=== PATIENT | male | born 1945 | race Caucasian/White ===

== ENCOUNTER → 2016-10-26 | Outpatient (CLI) | payer MEDICARE, OTHER ==
[2015-04-22 10:59] VITALS: BP 136/66
[~2016-10-26] MED LIST: ALPR0.25 PO; BACL10TA PO; ESOM20CA PO; EZET10TA18 PO; LISI10TA2 PO; OMEG500C3 PO; PSYL0.5215 PO; REGADENOSON 0.4 MG/5 ML DISP.SYRIN. IV ONE; TAMS0.4C97 PO; TRAM50TA PO
[2016-10-26 09:57] LABS: BASO % 0 % (0-3); EOS % 1 % (0-3); HEMATOCRIT 45.2 % (39.0-53.0); HEMOGLOBIN 15.8 g/dL (13.0-17.5); LYMPH # 1.2 x10^3/uL (1.0-4.8); LYMPH % 17 % (24-48); MEAN CORPUSCULAR HEMOGLOBIN 31 pg (25-35); MEAN CORPUSCULAR HGB CONC 35 g/dL (31-37); MEAN CORPUSCULAR VOLUME 89 fL (79-100); MONO % 7 % (0-9); NEUT % 74 % (31-73); PLATELET COUNT 232 x10^3/uL (140-400); RED BLOOD COUNT 5.06 x10^6/uL (4.30-5.70); RED CELL DISTRIBUTION WIDTH 13.9 % (11.5-14.5); WHITE BLOOD COUNT 7.1 x10^3/uL (4.0-11.0)
--- NOTE | 2016-10-26 13:18 | RAD ---
APPROVED REPORT Test Type: Pharmacological Stress Nurse/Tech: Ana White R.N. Test Indications: Chest pain, dypsnea Cardiac History: HTN Medications: SEE EMR Medical History: SEE EMR Resting ECG: SR Resting Heart Rate: 60 bpm Resting Blood Pressure: 137/67mmHg Pretest Chest Pain: None Nurse/Tech Notes S1S2, lungs CTA, denied chest pain, SOA or dizziness. Consent: The procedure was explained to the patient in lay terms. Informed consent was witnessed. Yamil eout was entered into [employer]. History and Stress Test performed by Ana White R.N. Pharm. Details Pharmacologic stress testing was performed using 0.4mg per 5ml of regadenoson given intravenously ove r 7-10 seconds. Stress Symptoms SOA, nausea. POST EXERCISE Reason for Termination: Infusion complete Max HR: 102 bpm Max Blood Pressure: 142/61mmHg Blood Pressure response to exercise: Normal blood pressure response during stress. Heart Rate response to exercise: Normal Chest Pain: No. Arrhythmia: No. ST Change: No. INTERPRETATION Stress EKG Conclusion: The resting EKG showed a sinus rhythm with mild nonspecific ST segment changes . The stress EKG showed no significant changes from baseline. No EKG evidence of stress-induced ischemia. Imaging Protocol IMAGE PROTOCOL: Rest Tc-99m/stress Tc-99m 1 day Rest: Stress: Viability: Radiopharm.Tc99m VjzxhguaxXh95p Sestamibi Ygxx62cZt 34mCi Duration 15min. 12min. Img Date 10/26/2016 10/26/2016 Inj-Img Zrmg41tlb. 60min. Rest Admin Site:IV - Left AntecubitalAdministrator:Raulito Reed, RT (R)(N) Stress Admin Site: IV - Left AntecubitalAdministrator: Caitlyn Zhao RT (R)(N) STRESS DATA End Diast. Vol.78.0mlAv. Heart Rate76.0bpm End Syst. Vol.8.0mlCO Index BSA0.0L/min Myocardial Cumy850.0gEject. Oloelylk17.0% Stress Rates Pk. Fill Rate2.38EDV/secLVtime Pk. Fill 201.60msec Pk. Empty Rate4.32ESV/secLVtime Pk. Lbnsr685.00msec 1/3 Pk. Fill1.60EDV/sec Stress Scores Regional WT0.00Summed WT0.00 Regional WM0.00Summed WM0.00 LV Perfusion The stress scans showed no significant defects. The rest scans showed no significant defects. Nuclear imaging shows no reversible ischemia or infarct. Wall Motion Left ventricular systolic function is normal with an ejection fraction of greater than 70%. LV Perf. Quant 17 Seg. SSS0.00 17 Seg. SRS0.00 17 Seg. SDS0.00 Stress Defect Extent (% LAD)0.00Rest Defect Extent (% LAD)0.00Rev. Defect Extent (% LAD)0.00 Stress Defect Extent (% LCX) 0.00Rest Defect Extent (% LCX)0.00Rev. Defect Extent (% LCX)0.00 Stress Defect Extent (% RCA)0.00Rest Defect Extent (% RCA)0.00Rev. Defect Extent (% RCA)0.00 Stress Defect Extent (% CARLOS)0.00Rest Defect Extent (% CARLOS)0.00Rev. Defect Extent (% CARLOS)0.00 Conclusion 1. No EKG evidence of stress-induced ischemia. 2. Nuclear imaging shows no reversible ischemia or infarct. 3. Normal left ventricular systolic function with an ejection fraction of greater than 70%. 4. Low risk Lexiscan nuclear stress test.
--- NOTE | 2016-10-26 13:22 | CARD ---
APPROVED REPORT EXAM: Two-dimensional and M-mode echocardiogram with Doppler and color Doppler. Other Information Quality : Average Rhythm : NSR INDICATION Dyspnea 2D DIMENSIONS RVDd3.5 (2.9-3.5cm)Left Atrium(2D)2.8 (1.6-4.0cm) IVSd1.1 (0.7-1.1cm)Aortic Root(2D)3.7 (2.0-3.7cm) LVDd4.6 (3.9-5.9cm)LVOT Diameter2.1 (1.8-2.4cm) PWd1.1 (0.7-1.1cm)LVDs2.5 (2.5-4.0cm) FS (%) 36.5 %SV76.6 ml LVEF(%)67.9 (>50%) Aortic Valve AoV Peak Clayton.121.0cm/sAoV VTI27.0cm AO Peak GR.5.9mmHgLVOT Peak Clayton.94.4cm/s LVOT VTI 20.83cmAO Mean GR.3mmHg MATTEO (VMAX)2.78lx5MRH (VTI)2.59cm2 Mitral Valve MV E Tgtqhpcr86.4cm/sMV DECEL SUVE179my MV A Bqhgbyga618.6cm/sMV JKT20ay E/A Ratio0.8MV A Xgvyhksg696mw MVA (PHT)3.18cm2 TDI E/Lateral E'9.3E/Medial E'14.6 Pulmonary Valve PV Peak Cmjmtkvw159.9cm/sPV Peak Grad.4mmHg RVOT VTI17.9cm Tricuspid Valve TR P. Mclcvkzh826my/sRAP CBUFWNQH5ubMy TR Peak Gr.96avXpPGKR15kxOl Pulmonary Vein S1 Wrhfcime51.8cm/sD2 Chfxxbsn57.6cm/s LEFT VENTRICLE The left ventricle is normal size. There is normal left ventricular wall thickness. Left ventricle sy stolic function is normal. The Ejection Fraction is 60-65%. There is normal LV segmental wall motion. The left ventricular diastolic function and filling is normal for age. There is no ventricular septa l defect visualized. RIGHT VENTRICLE The right ventricle is normal size. The right ventricular systolic function is normal. ATRIA The left atrium size is normal. The right atrium size is normal. The interatrial septum is intact wit h no evidence for an atrial septal defect or patent foramen ovale as noted on 2-D or Doppler imaging. AORTIC VALVE The aortic valve is mildly sclerotic. The aortic valve is trileaflet. Doppler and Color Flow revealed no significant aortic regurgitation. There is no significant aortic valvular stenosis. MITRAL VALVE The mitral valve is normal in structure and function. There is no mitral valve stenosis. Doppler and Color Flow revealed no mitral valve regurgitation noted. TRICUSPID VALVE The tricuspid valve is normal in structure and function. Doppler and Color Flow revealed mild tricusp id regurgitation. The PA pressure was estimated at 26 mmHg. There is no tricuspid valve stenosis. PULMONIC VALVE The pulmonic valve is not well visualized. Doppler and Color Flow revealed no pulmonic valvular regur gitation. There is no pulmonic valvular stenosis. GREAT VESSELS The aortic root is normal in size. Normal pulmonary venous flow (Doppler). The IVC is normal in size and collapses >50% with inspiration. PERICARDIAL EFFUSION There is no evidence of significant pericardial effusion. Critical Notification Critical Value: No <Conclusion> The left ventricle is normal size. Left ventricle systolic function is normal. The Ejection Fraction is 60-65%. There is no significant aortic valvular stenosis. Doppler and Color Flow revealed no significant aortic regurgitation. Doppler and Color Flow revealed no mitral valve regurgitation noted. Doppler and Color Flow revealed mild tricuspid regurgitation. The PA pressure was estimated at 26 mmHg.
== END | disposition home or self-care (01) ==
LOC: NM 09:37
PROVIDERS: ATTEND Internal Medicine Cardiovascular Disease
DX: R07.9 Chest pain, unspecified (principal); R06.09 Other forms of dyspnea
CPT/HCPCS: 36415; 78452; 85027; 85379; 93017; 93306; 96374; 96375; 96376; A9500; J2785

== ENCOUNTER → 2020-10-01 | Outpatient (CLI) | payer MEDICARE, OTHER ==
[2015-04-22 10:59] VITALS: BP 136/66
[~2020-10-01] MED LIST changes: -EZET10TA18 PO; +EZET10TA20 PO; +LISI10TA16 PO; -LISI10TA2 PO; -REGADENOSON 0.4 MG/5 ML DISP.SYRIN. IV ONE
--- NOTE | 2020-10-01 16:55 | CARD ---
MR#: [id number] Date of Study: 10/01/2020 Ordering Physician: TAMARA ROBB, Referring Physician: TAMARA ROBB, Tech: Gisela Dominguez [facility] APPROVED REPORT EXAM: Two-dimensional and M-mode echocardiogram with Doppler and color Doppler. Other Information Quality : GoodHR: 61bpm Rhythm : NSR INDICATION Dyspnea RISK FACTORS Hypertension 2D DIMENSIONS RVDd3.2 (2.9-3.5cm)Left Atrium(2D)3.3 (1.6-4.0cm) IVSd1.3 (0.7-1.1cm)Aortic Root(2D)3.2 (2.0-3.7cm) LVDd3.8 (3.9-5.9cm)LVOT Diameter1.8 (1.8-2.4cm) PWd1.1 (0.7-1.1cm)LVDs2.3 (2.5-4.0cm) FS (%) 39.3 %SV42.4 ml Aortic Valve AoV Peak Clayton.134.4cm/Danny Peak GR.7.2mmHg LVOT Peak Clayton.81.5cm/sAVA (VMAX)1.63cm2 Mitral Valve MV E Ktcnzonw91.5cm/sMV DECEL UHRC038al MV A Pfeppsxh402.8cm/sE/A Ratio0.5 Pulmonary Valve PV Peak Ccxyizsh13.7cm/s Tricuspid Valve TR P. Rjpokqom400qz/sRAP WDOCDHQQ1gsZe TR Peak Gr.92yhSfBTUH23cgFv Pulmonary Vein S1 Glallzaa81.5cm/sD2 Kgrfjhyd25.8cm/s PVa egsuwdbh512izlw LEFT VENTRICLE The left ventricle is normal size. There is borderline to mild concentric left ventricular hypertroph y. Left ventricular systolic function is normal. The left ventricular ejection fraction is 55-60%. No regional wall motion abnormalities noted. Tissue Doppler imaging reveals mild left ventricular diast olic dysfunction. No left ventricle thrombus noted on this study. There is no ventricular septal defe ct visualized. There is no left ventricular aneurysm. There is no mass noted in the left ventricle. RIGHT VENTRICLE The right ventricle is normal size. There is normal right ventricular wall thickness. The right ventr icular systolic function is normal. ATRIA The left atrium size is normal. The right atrium size is normal. The interatrial septum is intact wit h no evidence for an atrial septal defect or patent foramen ovale as noted on 2-D or Doppler imaging. AORTIC VALVE The aortic valve is mildly thickened but opens well. No aortic regurgitation is present. There is no aortic valvular stenosis. There is no aortic valvular vegetation. MITRAL VALVE The mitral valve is normal in structure and function. There is no evidence of mitral valve prolapse. There is no mitral valve stenosis. Doppler and Color Flow revealed trace mitral valve regurgitation. TRICUSPID VALVE The tricuspid valve is normal in structure and function. Doppler and Color Flow revealed mild tricusp id regurgitation. PAP 35 mmHg. There is no tricuspid valve prolapse or vegetation. There is no tricus pid valve stenosis. PULMONIC VALVE The pulmonary valve is normal in structure and function. There is no pulmonic valvular regurgitation. There is no pulmonic valvular stenosis. GREAT VESSELS The aortic root is normal in size. The ascending aorta is normal in size. The pulmonary artery is nor mal. The IVC is normal in size and collapses >50% with inspiration. PERICARDIAL EFFUSION There is no pleural effusion. The pericardium appears normal. Critical Notification Critical Value: No <Conclusion> The left ventricle is normal size. Left ventricular systolic function is normal. The left ventricular ejection fraction is 55-60%. There is borderline to mild concentric left ventricular hypertrophy. No aortic regurgitation is present. There is no aortic valvular stenosis. Doppler and Color Flow revealed trace mitral valve regurgitation. Doppler and Color Flow revealed mild tricuspid regurgitation. PAP 35 mmHg. Signed by : Tamara Robb MD Electronically Approved : 10/01/2020 16:55:23
== END ==
LOC: ECHO 12:12
PROVIDERS: ATTEND Internal Medicine Cardiovascular Disease
DX: I07.1 Rheumatic tricuspid insufficiency (principal)
CPT/HCPCS: 93306

== ENCOUNTER → 2021-09-14 | Outpatient (CLI) | payer MEDICARE, OTHER ==
[2015-04-22 10:59] VITALS: BP 136/66
[~2021-09-14] MED LIST changes: +ACYC5CRE2 TP; +ACYC800T88 PO; +APIX5TAB PO; +CHOL500021 PO; +DULO30CA2 PO; +FLUT16SP NS; +MECO10005 PO; +METO-239 PO; +OMEP40CA7 PO; +TRAZ150T49 PO
--- NOTE | 2021-09-14 12:53 | PDOC1 ---
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 Patient reports that the pain is getting more persistent he has tried physical therapies as well as light chiropractic treatment and exercise which he is doing currently all of which helped only briefly patient cannot have NSAIDs he reports that he has stomach issues as well as kidney issues and not taking anything besides Tylenol for the pain currently. Patient did have an MRI scan of the lumbar spine showing L4-5 moderate degenerative loss of disc height identified small to moderate posterior disc bulge along with ligamentum flavum thickening both lateral recesses are virtually effaced with both foramina moderately narrowed. Patient reports the pain is across the low back into the left lower extremity posterior gluteus lateral thigh posterior calf as well as the medial calf and lower leg and medial anterior thigh on the left worse with walking standing changing positions patient reports pain is constant sharp and stabbing with numbness in the leg radiating on the left side with activity patient can sit decrease the pain but it still present but gets better patient reports when he gets up the pain begins with after about 5 to 10 minutes of walking again patient reports it wakes him sleep at least once or twice a night side effects of bowel bladder control does affect his ability to walk otherwise not use any assistive devices. Patient disability rating 0-10 10 being the worst is a 7 with family home was possibilities 8 with recreation 6 with social activity occupation 5 with self-care and/support activities. Patient reports no loss of motor function but significant fatigability of left lower extremity with ambulation and standing. Patient reports no bowel or bladder incontinence. PAST MEDICAL HISTORY: PMH: Arthritis, atrial fibrillation, shortness of breath, basal cell carcinoma PREVIOUS SURGERIES: Past Surgical Hx: TURP, left ankle fracture with surgery x3, cholecystectomy, tonsillectomy, appendectomy CURRENT MEDICATIONS: Current Meds: Active Scripts Medications Dose Route/Sig Max Daily Dose Days Date Category D3-50 (Cholecalciferol (Vitamin D3)) 50,000 Unit Capsule 5,000 Unit PO DAILY 09/14/21 Reported B12 Active (Mecobalamin) 1,000 Mcg Tab.chew 1,000 Mcg PO DAILY 09/14/21 Reported Zovirax (Acyclovir) 5 Gm Cream..g. 1 [place] TP 5XDAY PRN 09/14/21 Reported Acyclovir 800 Mg Tablet 1 Tab PO BID PRN 09/14/21 Reported Fluticasone Propionate Nasal [place] (Fluticasone Propionate) 16 Gm [place].susp 2 [place] NS BID 09/14/21 Reported Cymbalta (Duloxetine Hcl) 30 Mg Capsule.dr 1 Cap PO DAILY 09/14/21 Reported Eliquis (Apixaban) 5 Mg Tablet 5 Mg PO BID 09/14/21 Reported Metoprolol Succinate ( Xl ) (Metoprolol Succinate) 25 Mg Tab.er.24h 1 Tab PO DAILY 09/14/21 Reported Trazodone Hcl 150 Mg Tablet 1 Tab PO QHS 30 09/14/21 Reported Omeprazole 40 Mg Capsule.dr 1 Cap PO DAILY 09/14/21 Reported Flomax (Tamsulosin Hcl) 0.4 Mg Cap.er.24h 0.4 Mg PO BID 04/20/15 Reported Metamucil (Psyllium Husk) 0.52 Gm Capsule 0.52 Gm PO PRN TID PRN 04/20/15 Reported Fish Oil (Lamar-3 Fatty Acids) 500 Mg Capsule 500 Mg PO BID94 04/20/15 Reported Lisinopril 10 Mg Tablet 10 Mg PO DAILY 04/20/15 Reported Zetia (Ezetimibe) 10 Mg Tablet 10 Mg PO DAILY 04/20/15 Reported ALLERGIES; Allergies: Coded Allergies: morphine (Verified Allergy, Severe, 04/20/15) CARDIAC ARREST WITH MORPHINE FAMILY HISTORY: Family Hx: Heart disease SOCIAL HISTORY: Social Hx: Patient is nondrug alcohol's quit smoking 40 years ago does not use any illegal illicit or recreational drugs is lives with his spouse lives locally in [facility] and is currently retired. REVIEW OF SYSTEMS: ROS: Positive for those items mentioned in history of present illness, all systems are reviewed, otherwise negative ,and are complete full and well-documented on p [facility]. PHYSICAL EXAM: VS: Blood pressure is 138/78 pulse 57 respirations 18 temperature 98.2 F weight is 199 pounds 5 height 5 feet 10 inches PE: PHYSICAL EXAMINATION: GENERAL: The patient is awake, alert, oriented, appropriate, very pleasant in demeanor HEENT: Shows normocephalic, atraumatic. Extraocular movements are intact and symmetrical. Patient wearing eyeglasses. Oral cavity: Mucous membranes moist and pink. Dentition is intact. NECK: Shows anterior throat supple without palpable lymphadenopathy noted. Swallow reflex symmetrical. CHEST: Shows normal on inspection. Breath sounds are clear bilaterally. HEART: Shows S1, S2 clear. No murmurs auscultated. ABDOMEN: Soft, nontender, nondistended. No palpable organomegaly is noted. BACK: Shows spine grossly in the midline. Normal-appearing cervical lordotic c urvature. There is mildly increased thoracic kyphosis, some mild flattening of the lumbar lordotic curvature. Lumbar paraspinous muscles show symmetrical on inspection, on palpation shows some moderate tenderness diffusely throughout the upper, middle and lower distribution of the paraspinous muscles bilaterally and also into the lower thoracic paraspinous musculature, firm and tender, but without specific trigger points, without radiation of pain. The patient has good rotational motion of the lumbar spine, both laterally as well as extension and flexion without significant difficulty. No tenderness over the spinous processes, sacrum or sacroiliac regions. EXTREMITIES: Lower extremities show deep tendon reflexes 1+ in the patellar and tendo calcaneus tendons. Motor exam is 5 on a scale of 5 with right dorsiflexion, extension, quadriceps and hamstring flexion and 4/5 on the left. Peripheral pulses are 1+ posterior tibial. No peripheral edema is noted bilaterally. Lower extremities are warm and dry to touch, equal in color and appearance. SKIN: Shows warm and dry, good turgor. No edema. No sores, rashes or bruising throughout. IMPRESSION: Impression: 76-year-old male with long history of low back and left lower extremity pain worse over the past 2 years MRI scan lumbar spine as noted Arthritis Atrial fibrillation with anticoagulation Hypertension Shortness of breath Plan: Options were discussed the patient occluding conservative measures continue physical therapies and interventional techniques. Patient would like proceed visual techniques. We discussed a lumbar epidural steroid injections de scription as well as anatomical models described procedure. 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 The meantime patient will continue with stretching strength exercise as well as oral analgesics as currently. SUNG REAL MD September 14, 2021 12:53
== END | disposition home or self-care (01) ==
LOC: PNCL 08:21
PROVIDERS: ATTEND Anesthesiology
DX: M54.50 Low back pain, unspecified (principal); M79.605 Pain in left leg; M19.90 Unspecified osteoarthritis, unspecified site; I48.91 Unspecified atrial fibrillation; I10 Essential (primary) hypertension; E78.00 Pure hypercholesterolemia, unspecified; K21.9 Gastro-esophageal reflux disease without esophagitis; F41.9 Anxiety disorder, unspecified; Z90.49 Acquired absence of other specified parts of digestive tract; Z98.890 Other specified postprocedural states; Z79.899 Other long term (current) drug therapy
CPT/HCPCS: G0463

== ENCOUNTER → 2021-09-22 | Outpatient (CLI) | payer MEDICARE, OTHER ==
[2015-04-22 10:59] VITALS: BP 136/66
[~2021-09-22] MED LIST changes: +DEXAMETHASONE PRES.FREE 10 MG/ML VIAL. ONE; +IOHEXOL 180 MG/ML 10 ML VIAL. ONE
--- NOTE | 2021-09-22 11:11 | PDOC4 ---
Procedure Note: ICD 10 Code: ICD 10 Code: M54.16 M51.36 M48.06 Procedure Note: Patient was consented for lumbar epidural steroid injection with fluoroscopic guidance. Risks were discussed including but not limited to: Bleeding, infection, possibility of epidural hematoma and subsequent neurological compromise, dural puncture, headaches, spinal cord and/or nerve damage, side effects of steroid medication, and poor results regarding pain control. Patient understands and wished to proceed. Procedure is lumbar epidural steroid injection under local anesthetic using ster ile prep and drape at the L4-5 level using C-arm fluoroscopic guidance in both AP and lateral views medications injected is 20 mg dexamethasone +10mL preservative-free normal saline and 2 mL contrast- condition at discharge is stable patient tolerated procedure well had no complications. SUNG REAL MD September 22, 2021 11:11
--- NOTE | 2021-09-22 11:11 | PDOC ---
Progress Note - Pain Clinic Date of Service: DOS: DATE: 09/22/21 TIME: 11:08 Diagnosis: Dx: Lumbar radiculopathy with lumbar degenerative disc disease and lumbar spinal stenosis History or Present Illness: HPI: 76-year-old male returns for follow-up status post evaluation and clearance to hold his Eliquis he been off it for 3 days now reports still significant pain low back left lower extremity posterior gluteus posterior lateral thigh lateral anterior thigh anteromedial thigh medial lower leg to the ankle and foot. Patie nt reports aching and stinging tingling and stabbing in the back area radiating shooting the leg constant can be severe and radiating as well in the left leg with activity standing and walking. Patient reports better with sitting or laying down generally does not awaken her from sleep at night patient reports no bowel or bladder incontinence patient rates his pain as 8 on scale 10 is worse over the past week 6 on average 4 at its least, and is a 4 today. Patient reports no new deficits but significant fatigability in the left lower extremity with ambulation. Physical Exam: VS: Blood pressure is 133/89 pulse 62 respirations 18 temperature 98.3 F height 5 feet 10 inches weight 197 pounds. PE: PHYSICAL EXAMINATION: GENERAL: The patient is awake, alert, oriented, appropriate, very pleasant in demeanor HEENT: Shows normocephalic, atraumatic. Extraocular movements are intact and symmetrical. NECK: Shows anterior throat supple without palpable lymphadenopathy noted. Swallow reflex symmetrical. CHEST: Shows normal on inspection. Breath sounds are clear bilaterally. HEART: Shows S1, S2 clear. No murmurs auscultated. ABDOMEN: Soft, nontender, nondistended. No palpable organomegaly is noted. BACK: Shows spine grossly in the midline. Normal-appearing cervical lordotic curvature. There is slightly increased thoracic kyphosis, some minor flattening of the lumbar lordotic curvature. Lumbar paraspinous muscles show symmetrical on inspection, on palpation shows some moderate tenderness diffusely throughout the upper, middle and lower distribution of the paraspinous musculature, but wit hout specific trigger points, without radiation of pain. The patient has good rotational motion of the lumbar spine, both laterally as well as extension and flexion without significant difficulty. EXTREMITIES: Lower extremities show deep tendon reflexes 1+ in the patellar and tendo calcaneus tendons. Motor exam is 5 on a scale of 5 with right dorsiflexion, extension, quadriceps and hamstring flexion and 4/5 on the left. Peripheral pulses are 1+ posterior tibial. No peripheral edema is noted bilaterally. Lower extremities are warm and dry to touch, equal in color and appearance. SKIN: Shows warm and dry, good turgor. No edema. No sores, rashes or bruising throughout. Procedure: Procedure: Options were discussed with patient. Patient's old chart was reviewed as his current medication regimen updated current review of systems updated today as well. We will proceed with a lumbar epidural steroid injection today with fluoroscopic guidance. Risks were discussed including but not limited to: Bleeding, infection, possibility of epidural hematoma and subsequent neurological compromise, dural puncture, headaches, spinal cord and/or nerve damage, side effects of steroid medication, and poor results regarding pain control. Patient understands and wished to proceed. Patient will return to clinic in approximate 2 weeks for follow-up, was counseled as to return appointment, activity level, and side effect to be aware of. Patient will restart Eliquis tomorrow September 23, 2021 Medication Injected: Med Injected: Procedure is lumbar epidural steroid injection under local anesthetic using sterile prep and drape at the L4-5 level using C-arm fluoroscopic guidance in both AP and lateral views medications injected is 20 mg dexamethasone +10mL preservative-free normal saline and 2 mL contrast- condition at discharge is stable patient tolerated procedure well had no complications. Condition at Discharge: Condition at Discharge: Condition at discharge is stable, patient tolerated procedure well and had no complications. SUNG REAL MD September 22, 2021 11:11
== END | disposition home or self-care (01) ==
LOC: PNCL 09:37
PROVIDERS: ATTEND Anesthesiology
DX: M51.16 Intervertebral disc disorders with radiculopathy, lumbar region (principal); M48.061 Spinal stenosis, lumbar region without neurogenic claudication; I10 Essential (primary) hypertension; E78.00 Pure hypercholesterolemia, unspecified; K21.9 Gastro-esophageal reflux disease without esophagitis; M19.90 Unspecified osteoarthritis, unspecified site; F41.9 Anxiety disorder, unspecified; Z90.49 Acquired absence of other specified parts of digestive tract; Z98.890 Other specified postprocedural states; Z79.899 Other long term (current) drug therapy; Z88.6 Allergy status to analgesic agent
CPT/HCPCS: 62323; J1100; Q9965